=== PATIENT | male | born 1975 | race Caucasian/White ===

== ENCOUNTER 2016-02-17 10:07 | Emergency (ER) | payer BC ==
[2016-02-17] MEDS ORDERED: Zofran 4 MG/2 ML VIAL IV ONE (10:31)
[2016-02-17] MEDS ORDERED: Sodium Chloride 0.9% 1000 ML 1,000 ML IV STA (10:31)
[2016-02-17] MEDS ORDERED: DILAUDID 1 MG/ML INJECTION IV ONE (10:31)
--- NOTE | 2016-02-17 10:35 | ERPHSYRPT ---
- History of Present Illness Time Seen by Provider: 02/17/16 10:25 Source: patient Exam Limitations: clinical condition Physician History: PATIENT WITH HISTORY OF KIDNEY STONES COMPLAINS OF ACUTE ONSET RIGHT FLANK PAINS CONSTANT SINCE LAST NIGHT ASSOCIATED WITH NAUSEA. STATES PAIN IS LOCALIZED BELOW FLANK AREA WITHOUT RADIATION AROUND TO LOWER ABDOMEN. DENIES FEVER, URINARY SYMPTOMS DYSURIA, FREQUENCY, URGENCY OR HEMATURIA. Timing/Duration: yesterday Activites at Onset: none Quality: sharpness, throbbing Onset Location: right flank Pain Radiation: none Severity of Pain-Max: severe Severity of Pain-Current: severe Modifying Factors: Improves With: breathing, movement Associated Symptoms: nausea Prior abdominal problems: similar symptoms Sexual intercourse history: non-contributory Allergies/Adverse Reactions: Penicillins Allergy (Verified 02/17/16 10:27) Home Medications: Metformin HCl 1000 mg [Glucophage 1000 MG] 1,000 mg BID 02/17/16 [History] Sitagliptin Phosphate 50 MG [Januvia 50 MG] 50 mg DAILY 02/17/16 [History] - Review of Systems Constitutional: No Fever, No Chills Eyes: No Symptoms Ears, Nose, & Throat: No Symptoms Respiratory: No Symptoms, No Cough, No Dyspnea Cardiac: No Chest Pain, No Edema, No Syncope Abdominal/Gastrointestinal: No Abdominal Pain, No Nausea, No Vomiting, No Diarrhea Genitourinary Symptoms: No Symptoms, No Dysuria Musculoskeletal: Back Pain, No Neck Pain Skin: No Rash Neurological: No Dizziness, No Focal Weakness, No Sensory Changes Psychological: No Symptoms Endocrine: No Symptoms All Other Systems: Reviewed and Negative - Nursing Vital Signs Nursing Vital Signs: Initial Vital Signs Pulse Rate 75 Respiratory Rate 22 Blood Pressure 129/79 Pain Intensity 4 - Physical Exam General Appearance: no apparent distress, alert Eye Exam: PERRL/EOMI Ears, Nose, Throat Exam: pharynx normal, moist mucous membranes Neck Exam: normal inspection, supple Respiratory Exam: normal breath sounds, lungs clear Cardiovascular Exam: regular rate/rhythm, No edema Gastrointestinal/Abdomen Exam: soft, normal bowel sounds, other (NONTENDER.), No tenderness Back Exam: normal inspection, CVA tenderness, muscle spasm (THERE IS RIGHT PARAVERTEBRAL TENDERNESS T-12 TO L-4) Extremity Exam: normal inspection, normal range of motion, No pedal edema Neurologic Exam: alert, oriented x 3, cooperative, sensation nml, No motor deficits Skin Exam: normal color, warm, dry, No rash SpO2 Interpretation: normal SpO2: 98 - CT Exams Abdomen/Pelvis CT Interpretation: Discussed w/radiologist (NO RENAL CALCULUS, OR EVIDENCE OF OBSTRUCTIVE UROPATHY) Ordered Tests: Active Orders 24 hr Category Date Time Status IV Insertion STAT Care 02/17/16 10:31 Active ABDOMEN AND PELVIS W/0 CONTRAS [CT] Stat Exams 02/17/16 10:32 Completed AMYLASE Stat Lab 02/17/16 10:43 Completed BMP Stat Lab 02/17/16 10:43 Completed CBC W DIFF Stat Lab 02/17/16 10:43 Completed D-DIMER QUANTITATION Stat Lab 02/17/16 10:30 Completed LIPASE Stat Lab 02/17/16 10:43 Completed UA Stat Lab 02/17/16 10:43 Completed Medication Summary Discontinued Medications Generic Name Dose Route Start Last Admin Trade Name Freq PRN Reason Stop Dose Admin Hydromorphone HCl 2 mg 02/17/16 10:31 02/17/16 10:42 Dilaudid 1 Mg/Ml Injection IV 02/17/16 10:32 2 mg STAT ONE Administration Hydromorphone HCl Confirm 02/17/16 10:41 Dilaudid 1 Mg/Ml Injection Administered 02/17/16 10:42 Dose 1 mg .ROUTE .STK-MED ONE Hydromorphone HCl Confirm 02/17/16 10:48 Dilaudid 1 Mg/Ml Injection Administered 02/17/16 10:49 Dose 1 mg .ROUTE .STK-MED ONE Sodium Chloride 1,000 mls @ 999 mls/hr 02/17/16 10:31 02/17/16 10:42 Sodium Chloride 0.9% 1000 Ml IV 02/17/16 11:31 999 mls/hr .Q1H1M STA Administration Sodium Chloride Confirm 02/17/16 10:41 Sodium Chloride 0.9% 1000 Ml Administered 02/17/16 10:42 Dose 1,000 mls @ ud .ROUTE .STK-MED ONE Sodium Chloride Confirm 02/17/16 11:57 Sodium Chloride 0.9% 100 Ml Ivpb Administered 02/17/16 11:58 Dose 100 mls @ ud IV .STK-MED ONE Morphine Sulfate 10 mg 02/17/16 11:50 02/17/16 11:57 Morphine Sulfate 10 Mg/Ml IV 02/17/16 11:51 10 mg STAT ONE Administration Morphine Sulfate Confirm 02/17/16 11:57 Morphine Sulfate 10 Mg/Ml Administered 02/17/16 11:58 Dose 10 mg .ROUTE .STK-MED ONE Ondansetron HCl 4 mg 02/17/16 10:31 02/17/16 10:42 Zofran 4 Mg/2 Ml Vial IV 02/17/16 10:32 4 mg STAT ONE Administration Ondansetron HCl Confirm 02/17/16 10:41 Zofran 4 Mg/2 Ml Vial Administered 02/17/16 10:42 Dose 4 mg .ROUTE .STK-MED ONE Promethazine HCl 25 mg 02/17/16 11:50 02/17/16 11:57 Phenergan 25 Mg Inj IV 02/17/16 11:51 25 mg STAT ONE Administration Promethazine HCl Confirm 02/17/16 11:56 Phenergan 25 Mg Inj Administered 02/17/16 11:57 Dose 25 mg .ROUTE .STK-MED ONE Lab/Rad Data: Laboratory Result Diagrams 02/17/16 10:43 02/17/16 10:43 Laboratory Results 02/17/16 02/17/16 02/17/16 Range/Units 10:43 10:43 10:43 WBC 9.5 (4.0-10.5) K/mm3 RBC 5.16 (4.1-5.6) M/mm3 Hgb 14.9 (12.5-18.0) gm/dl Hct 44.9 (42-50) % MCV 87.0 (78-100) fl MCH 28.9 (26-32) pg MCHC 33.2 (32-36) g/dl RDW 13.6 (11.5-14.0) % Plt Count 281 (150-450) K/mm3 MPV 8.9 (6-9.5) fl Gran % 64.2 (36.0-66.0) % Lymphocytes % 26.7 (24.0-44.0) % Monocytes % 6.7 (0.0-12.0) % Eosinophils % 2.0 (0.00-5.0) % Basophils % 0.4 (0.0-0.4) % Basophils # 0.04 (0-0.4) D-Dimer (0.00-0.49) mg/L Sodium 141 (136-145) mEq/L Potassium 4.4 (3.5-5.1) mEq/L Chloride 105 (98-107) mEq/L Carbon Dioxide 24.2 (21-32) mEq/L Anion Gap 15.7 H (5-15) MEQ/L BUN 18 (9-20) mg/dL Creatinine 1.48 H (0.55-1.30) mg/dl Estimated GFR 55 ML/MIN Glucose 143 H (70-110) MG/DL Calcium 9.6 (8.5-10.1) mg/dL Amylase 66 (25-115) U/L Lipase 255 (73-393) U/L Ur Collection Type VOID Urine Color YELLOW (YELLOW) Urine Appearance CLEAR (CLEAR) Urine pH 5.0 (5-6) Ur Specific [place] >=1.030 (1.005-1.025) Urine Protein NEGATIVE (Negative) Urine Glucose (UA) NEGATIVE (NEGATIVE) mg/dL Urine Ketones NEGATIVE (NEGATIVE) Urine Nitrite NEGATIVE (NEGATIVE) Urine Bilirubin NEGATIVE (NEGATIVE) Urine Urobilinogen 0.2 (0-1) mg/dL Urine WBC (Auto) NEGATIVE (NEGATIVE) Urine RBC (Auto) NEGATIVE (0-5) Tom/ul Specimen Received 02/17/16 1040 02/17/16 Range/Units 10:30 WBC (4.0-10.5) K/mm3 RBC (4.1-5.6) M/mm3 Hgb (12.5-18.0) gm/dl Hct (42-50) % MCV (78-100) fl MCH (26-32) pg MCHC (32-36) g/dl RDW (11.5-14.0) % Plt Count (150-450) K/mm3 MPV (6-9.5) fl Gran % (36.0-66.0) % Lymphocytes % (24.0-44.0) % Monocytes % (0.0-12.0) % Eosinophils % (0.00-5.0) % Basophils % (0.0-0.4) % Basophils # (0-0.4) D-Dimer 0.303 (0.00-0.49) mg/L Sodium (136-145) mEq/L Potassium (3.5-5.1) mEq/L Chloride (98-107) mEq/L Carbon Dioxide (21-32) mEq/L Anion Gap (5-15) MEQ/L BUN (9-20) mg/dL Creatinine (0.55-1.30) mg/dl Estimated GFR ML/MIN Glucose (70-110) MG/DL Calcium (8.5-10.1) mg/dL Amylase (25-115) U/L Lipase (73-393) U/L Ur Collection Type Urine Color (YELLOW) Urine Appearance (CLEAR) Urine pH (5-6) Ur Specific [place] (1.005-1.025) Urine Protein (Negative) Urine Glucose (UA) (NEGATIVE) mg/dL Urine Ketones (NEGATIVE) Urine Nitrite (NEGATIVE) Urine Bilirubin (NEGATIVE) Urine Urobilinogen (0-1) mg/dL Urine WBC (Auto) (NEGATIVE) Urine RBC (Auto) (0-5) Tom/ul Specimen Received - Progress Progress: pain not gone completely Progress Note: 02/17/16 13:13 PATIENT GIVEN 1 LITER NORMAL SALINE, ZOFRAN 4MG, DILAUDID 2MG, WITH MODERATE IMPROVEMENT. MORPHINE SULFATE 10MG IV Counseled pt/family regarding: lab results, diagnosis, need for follow-up, rad results - Departure Time of Disposition: 13:30 Departure Disposition: Home Clinical Impression: RIGHT RENAL COLIC Condition: Stable Critical Care Time: No Additional Instructions: CONSULT YOUR FAMILY PHYSICIAN FOR EVALUATION, CALL OFFICE TODAY TO SCHEDULE APPOINTMENT. PERCOCET 10/325 EVERY 4 HOURS FOR PAIN. NORFLEX 100MG TWICE DAILY FOR 5 DAYS. AVOID USING MOTOR EQUIPMENT WHILE TAKING THESE MEDICATIONS. STRAIN YOUR URINE USING A STRAINER Prescriptions: Oxycodone HCl/Acetaminophen [Percocet 10-325 mg Tablet] 1 each PO Q4HPRN PRN # 10 tablet PRN Reason: Pain Orphenadrine Citrate 100 mg [Norflex 100 MG Tablet] 100 mg PO BIDPRN PRN # 10 tab PRN Reason: Muscle Spasms
[2016-02-17] MEDS ORDERED: Zofran 4 MG/2 ML VIAL ONE (10:41)
[2016-02-17] MEDS ORDERED: Sodium Chloride 0.9% 1000 ML 1,000 ML ONE (10:41)
[2016-02-17] MEDS ORDERED: DILAUDID 1 MG/ML INJECTION ONE ×2 (10:41→10:48)
[2016-02-17 10:49] LABS: BASOPHIL % 0.4 % (0.0-0.4); Granulocytes % 64.2 % (36.0-66.0); Lymphocytes % 26.7 % (24.0-44.0); Mean Corpuscular Hemoglobin 28.9 pg (26-32); Mean Platelet Volume 8.9 fl (6-9.5); Monocytes % 6.7 % (0.0-12.0); Platelet Count 281 K/mm3 (150-450); Red Blood Count 5.16 M/mm3 (4.1-5.6); Red Cell Distribution Width 13.6 % (11.5-14.0); White Blood Count 9.5 K/mm3 (4.0-10.5)
[2016-02-17 10:54] LABS: Collection Type VOID
[2016-02-17 10:55] LABS: COMPLETE URINE MICROSCOPIC? NO
[2016-02-17 11:09] LABS: ANION GAP 15.7 MEQ/L (5-15); Carbon Dioxide 24.2 mEq/L (21-32); Potassium 4.4 mEq/L (3.5-5.1)
[2016-02-17] MEDS ORDERED: MORPHINE SULFATE 10 MG/ML IV ONE (11:50)
[2016-02-17] MEDS ORDERED: Phenergan 25 MG INJ IV ONE (11:50)
[2016-02-17] MEDS ORDERED: Phenergan 25 MG INJ ONE (11:56)
[2016-02-17] MEDS ORDERED: Sodium Chloride 0.9% 100 ML IVPB 100 ML IV ONE (11:57)
[2016-02-17] MEDS ORDERED: MORPHINE SULFATE 10 MG/ML ONE (11:57)
--- NOTE | 2016-02-17 12:10 | XRAY ---
Indication: Right flank pain. Multiple contiguous axial images obtained through the abdomen and pelvis without contrast as ordered. Comparison: February 12, 2010 Lung bases are clear. Heart is not enlarged. No renal calculus or evidence for obstructive uropathy in either system. Stable fatty liver, benign splenic hypodense lesion, cholecystectomy, and hepatic/splenic calcified granulomas. Noncontrasted stomach and bowel loops nonobstructed with again minimal descending/sigmoid diverticulosis. Normal appendix. No free fluid/air. Remaining liver, pancreas, spleen, adrenal glands, kidneys, ureters, bladder, and aorta appear unremarkable for noncontrast exam. Osseous structures intact. Impression: 1. No new/acute intra-abdominal/pelvic abnormalities on this noncontrast exam. 2. Stable fatty liver, benign splenic hypodense lesion, colonic diverticulosis, and evidence for old granulomatous disease. CT DI is 21.14
[2016-02-17 13:35] VITALS: BP 123/74; PULSE 78; O2SAT 70
== END 2016-02-17 13:35 | disposition home or self-care (01) ==
LOC: ED 10:07
DX: N23 Unspecified renal colic (principal); R10.9 Unspecified abdominal pain; R11.0 Nausea
CPT/HCPCS: 36000; 36415; 74176; 80048; 81002; 82150; 83690; 85025; 85379; 96360; 96365; 96374; 96375; 99283; J1170; J2270; J2405; J2550

== ENCOUNTER 2018-03-15 22:28 | Emergency (ER) | payer BC ==
--- NOTE | 2018-03-15 22:41 | ERPHSYRPT ---
- History of Present Illness Time Seen by Provider: 03/15/18 22:41 Source: patient, family Exam Limitations: no limitations Physician History: 42 y/o diabetic white male presents with left side neck pain which radiates to left post shoulder and left mormon around eye. no visual changes. had had several episodes of this in the past improved with nsaids. this episode did not improve with alleve pm he took at 9pm. no cp, no soa and no abd pain. Timing/Duration: today Severity: moderate Modifying Factors: Improves With: movement Associated Symptoms: nausea, No vomiting, No abdominal pain, No shortness of breath, No chest pain, No headaches, No syncope, No seizure Allergies/Adverse Reactions: Penicillins Allergy (Verified 03/15/18 22:34) Home Medications: Metformin HCl 1000 mg [Glucophage 1000 MG] 1,000 mg BID 02/17/16 [History] Sitagliptin Phosphate 50 MG [Januvia 50 MG] 50 mg DAILY 02/17/16 [History] Hx Influenza Vaccination/Date Given: No Hx Pneumococcal Vaccination/Date Given: No - Review of Systems Constitutional: No Symptoms Eyes: No Symptoms Ears, Nose, & Throat: No Symptoms Respiratory: No Symptoms Cardiac: No Symptoms Abdominal/Gastrointestinal: Nausea, No Abdominal Pain, No Vomiting, No Diarrhea Genitourinary Symptoms: No Symptoms, No Dysuria, No Frequency, No Hematuria Musculoskeletal: Neck Pain (left side primarily a little on right) Skin: No Symptoms Neurological: No Symptoms Psychological: No Symptoms Endocrine: No Symptoms Hematologic/Lymphatic: No Symptoms Immunological/Allergic: No Symptoms All Other Systems: Reviewed and Negative - Past Medical History Pertinent Past Medical History: Yes Neurological History: No Pertinent History ENT History: No Pertinent History Cardiac History: No Pertinent History Respiratory History: No Pertinent History Endocrine Medical History: Diabetes Type II Musculoskeletal History: No Pertinent History GI Medical History: No Pertinent History History: Renal Disease Other Medical History: stage 3 reanal disease - Past Surgical History Past Surgical History: No Neuro Surgical History: No Pertinent History Cardiac: No Pertinent History Respiratory: No Pertinent History Gastrointestinal: No Pertinent History Genitourinary: No Pertinent History - Social History Smoking Status: Never smoker Exposure to second hand smoke: No Drug Use: none Patient Lives Alone: No - Nursing Vital Signs Nursing Vital Signs: Initial Vital Signs Temperature 98.0 F 03/15/18 22:36 Pulse Rate 95 H 03/15/18 22:36 Respiratory Rate 18 03/15/18 22:36 Blood Pressure 151/103 03/15/18 22:36 O2 Sat by Pulse Oximetry 98 03/15/18 22:36 Pain Scale Pain Intensity 4 - Physical Exam General Appearance: mild distress, alert, anxiety Eye Exam: PERRL/EOMI, eyes nml inspection, No photophobia Ears, Nose, Throat Exam: normal ENT inspection, moist mucous membranes Neck Exam: normal inspection, supple, full range of motion, other (muscular tenderness to palpation left paraspinous region.) Respiratory Exam: normal breath sounds, lungs clear, airway intact, No chest tenderness, No respiratory distress, No accessory muscle use, No rhonchi, No wheezing, No stridor Cardiovascular Exam: regular rate/rhythm, normal heart sounds, normal peripheral pulses Gastrointestinal/Abdomen Exam: soft, normal bowel sounds, No tenderness, No guarding Rectal Exam: not done Back Exam: normal inspection, normal range of motion, No CVA tenderness, No vertebral tenderness Extremity Exam: normal inspection, normal range of motion, pelvis stable Neurologic Exam: alert, oriented x 3, cooperative, 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 Skin Exam: normal color, warm, dry Lymphatic Exam: No adenopathy SpO2 Interpretation: normal O2 Delivery: Room Air - Course Nursing assessment & vital signs reviewed: Yes Ordered Tests: Active Orders 24 hr Category Date Time Status NECK WO CONTRAST [CT] Stat Exams 03/15/18 22:50 Taken Medication Summary Discontinued Medications Generic Name Dose Route Start Last Admin Trade Name Sherrie PRN Reason Stop Dose Admin Hydromorphone HCl 1 mg 03/15/18 22:49 03/15/18 22:57 Hydromorphone 1 Mg/Ml Ampule IM 03/15/18 22:50 1 mg STAT ONE Administration Hydromorphone HCl Confirm 03/15/18 22:53 Hydromorphone 1 Mg/Ml Ampule Administered 03/15/18 22:54 Dose 1 mg .ROUTE .STK-MED ONE Ondansetron HCl 4 mg 03/15/18 22:50 03/15/18 22:55 Zofran Odt 4 Mg PO 03/15/18 22:51 4 mg STAT ONE Administration Ondansetron HCl Confirm 03/15/18 22:53 Zofran Odt 4 Mg Administered 03/15/18 22:54 Dose 4 mg .ROUTE .STK-MED ONE Orphenadrine Citrate 60 mg 03/15/18 22:50 03/15/18 22:56 Norflex 60 Mg/2 Ml IM 03/15/18 22:51 60 mg STAT ONE Administration Orphenadrine Citrate Confirm 03/15/18 22:54 Norflex 60 Mg/2 Ml Administered 03/15/18 22:55 Dose 60 mg .ROUTE .STK-MED ONE - Progress Progress: improved, re-examined Progress Note: 03/16/18 00:53 ct c spine-no acute findings Counseled pt/family regarding: diagnosis, need for follow-up, rad results - Departure Time of Disposition: 00:54 Departure Disposition: Home Clinical Impression: Neck pain on left side, Muscle spasms of neck Condition: Stable Critical Care Time: No Referrals: MERARI RODRIGUEZ [Primary Care Provider] - Additional Instructions: add tylenol for pain. no ibuprofen or alleve until prednisone completed. monitor blood sugar closely while taking prednisone Prescriptions: Carisoprodol 350 mg [Soma 350 mg] 350 mg PO Q8H PRN PRN #10 tablet PRN Reason: Muscle Spasms Prednisone 10 mg [Deltasone 10 mg] 10 mg PO TID #6 tablet
[2018-03-15] MEDS ORDERED: Hydromorphone 1 mg/ml Ampule IM ONE (22:49)
[2018-03-15] MEDS ORDERED: Norflex 60 MG/2 ML IM ONE (22:50)
[2018-03-15] MEDS ORDERED: ZOFRAN ODT 4 MG PO ONE (22:50)
[2018-03-15] MEDS ORDERED: Hydromorphone 1 mg/ml Ampule ONE (22:53)
[2018-03-15] MEDS ORDERED: ZOFRAN ODT 4 MG ONE (22:53)
[2018-03-15] MEDS ORDERED: Norflex 60 MG/2 ML ONE (22:54)
[2018-03-16 00:35] VITALS: BP 141/83
[2018-03-16 01:02] VITALS: PULSE 86; O2SAT 99
--- NOTE | 2018-03-16 09:12 | XRAY ---
Indication: Left neck pain radiating left shoulder. Multiple contiguous axial images obtained through the neck without contrast as ordered. Comparison: None Multiple bilateral dental amalgams produces beam artifact limiting these levels. Parotid and submandibular glands are bilaterally symmetric. Major arteries and veins are normal in course and caliber. Small nonpathologic cervical lymph nodes bilaterally. No pathologic cervical or supraclavicular lymphadenopathy. Supra-and infraglottic airway widely patent. Normal epiglottis. Cervical spine intact with mild C5-C6 degenerative disc osteophyte complex without spinal canal or foraminal stenosis. Base of the brain and lung apices unremarkable. Impression: 1. C5-C6 degenerative disc disease better evaluated with outpatient MRI if clinically warranted. 2. Remaining CT neck without contrast exam is negative. Comment: Preliminary interpretation was made by [facility] who does not report incidental C5-C6 degenerative changes. CT DI 12.52
== END 2018-03-16 01:14 | disposition home or self-care (01) ==
LOC: ED 22:28
DX: M54.2 Cervicalgia (principal); E11.9 Type 2 diabetes mellitus without complications; Z79.4 Long term (current) use of insulin; N18.3 Chronic kidney disease, stage 3 (moderate)
CPT/HCPCS: 70490; 96372; 99284; J1170; J2360; Q0162

== ENCOUNTER 2020-06-25 18:37 | Emergency (ER) | payer BC ==
[2020-06-25 18:39] VITALS: O2SAT 95
[2020-06-25] MEDS ORDERED: MORPHINE SULFATE 4 MG INJ IM ONE (19:00)
[2020-06-25] MEDS ORDERED: MORPHINE SULFATE 4 MG INJ ONE (19:16)
[2020-06-25 19:47] VITALS: BP 140/92; PULSE 100
--- NOTE | 2020-06-25 20:00 | ERPHSYRPT ---
- History of Present Illness Time Seen by Provider: 06/25/20 18:56 Historian: patient Exam Limitations: no limitations Patient Subjective Stated Complaint: Pt was moving barrels of oil this morning when he felt a "pop" in his left ribs that has continued to get worse all day Triage Nursing Assessment: Pt drove self to the ER, hypertensive, hx of left sided rib fractures, pain with breathing, no visible bruising, denies any other injuries, lungs clear Physician History: 45 years old male with history of diabetes mellitus, previous left-sided rib fracture presented in the ER with chief complaint of left posterior lateral chest wall pain sudden onset this morning while he was moving all barrels and heard a popping sound with sudden severe sharp pain around the area of popping. Hurts to take it deep breath, position change/coughing/palpation. Because of pain he is having shallow breathing and feels a little short of breath but not hypoxic on presentation in the ER. Patient denies any abdominal pain, nausea or vomiting. Timing/Duration: today, constant, sudden, worse Activities at Onset: activity Quality: sharpness, stabbing Location: other (Left posterior lateral chest wall) Chest Pain Radiation: no radiation Severity of Pain-Max: severe Severity of Pain-Current: severe Modifying Factors: Improves With: rest. Worsens With: breathing, coughing, movement, palpation, change in position Associated Symptoms: shortness of breath, hurts to breathe, No cough Prior Chest Pain/Cardiac Workup: non-cardiac Nitro Today/Relief: no nitro taken today Aspirin Treatment Today: no aspirin today Allergies/Adverse Reactions: Penicillins Allergy (Verified 06/25/20 18:46) Home Medications: Metformin HCl 1000 mg [Glucophage 1000 MG] 1,000 mg BID 02/17/16 [History] Glimepiride 2 mg [Amaryl 2 MG] 2 mg PO DAILY 06/25/20 [History] Sertraline HCl [Zoloft] 100 mg PO DAILY 06/25/20 [History] Simvastatin 10 mg [Zocor 10MG] 10 mg PO DAILY 06/25/20 [History] Hx Influenza Vaccination/Date Given: No Hx Pneumococcal Vaccination/Date Given: No Travel Risk - International Travel Have you traveled outside of the country in past 3 weeks: No - Coronavirus Screening Are you exhibiting any of the following symptoms?: No Close contact with a COVID-19 positive Pt in past 14-21 Days: No - Vaccine Status Have you recieved a Covid-19 vaccination: Yes [facility] Coordinator: Moderna - Vaccination Dates Date of 2cond Vaccination (if applicable): 06/14/2020 - Review of Systems Constitutional: No Symptoms Eyes: No Symptoms Ears, Nose, & Throat: No Symptoms Respiratory: Dyspnea Cardiac: Chest Pain Abdominal/Gastrointestinal: No Symptoms Genitourinary Symptoms: No Symptoms Skin: No Symptoms Neurological: No Symptoms Psychological: No Symptoms Endocrine: No Symptoms Hematologic/Lymphatic: No Symptoms Immunological/Allergic: No Symptoms - Past Medical History Pertinent Past Medical History: Yes Neurological History: No Pertinent History ENT History: No Pertinent History Cardiac History: No Pertinent History Respiratory History: No Pertinent History Endocrine Medical History: Diabetes Type II Musculoskeletal History: No Pertinent History GI Medical History: No Pertinent History History: Renal Disease Other Medical History: stage 3 reanal disease - Past Surgical History Past Surgical History: Yes Neuro Surgical History: No Pertinent History Cardiac: No Pertinent History Respiratory: No Pertinent History Gastrointestinal: Cholecystectomy Genitourinary: No Pertinent History Musculoskeletal: Orthopedic Surgery Other Surgical History: wrist surgery - Social History Smoking Status: Never smoker Exposure to second hand smoke: No Drug Use: none Patient Lives Alone: No - Nursing Vital Signs Nursing Vital Signs: Initial Vital Signs Pulse Rate 102 H 06/25/20 18:38 Respiratory Rate 31 H 06/25/20 18:38 Blood Pressure 150/100 06/25/20 18:38 O2 Sat by Pulse Oximetry 95 06/25/20 18:38 Pain Scale Pain Intensity 4 - Physical Exam General Appearance: no apparent distress, alert Eye Exam: PERRL/EOMI Ears, Nose, Throat Exam: normal ENT inspection, pharynx normal Neck Exam: normal inspection, non-tender, supple, full range of motion Respiratory Exam: chest tenderness (Left lower posterolateral chest wall. No crepitus. 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 Skin Exam: normal color SpO2 Interpretation: normal SpO2: 95 O2 Delivery: Room Air Ordered Tests: Active Orders 24 hr Category Date Time Status CHEST 1 VIEW (PORTABLE) Stat Exams 06/25/20 19:03 Taken RIBS UNILATERAL Stat Exams 06/25/20 19:03 Taken Medication Summary Discontinued Medications Generic Name Dose Route Start Last Admin Trade Name Freq PRN Reason Stop Dose Admin Morphine Sulfate 4 mg 06/25/20 19:00 06/25/20 19:20 Morphine Sulfate 4 Mg Inj IM 06/25/20 19:01 4 mg STAT ONE Administration Morphine Sulfate Confirm 06/25/20 19:16 Morphine Sulfate 4 Mg Inj Administered 06/25/20 19:17 Dose 4 mg .ROUTE .STK-MED ONE - Progress Progress: improved, re-examined Air Movement: good Progress Note: 06/25/20 19:56 Patient has point tenderness in the left chest. No crepitus. Given morphine for symptomatic relief and feeling better on reevaluation. I have obtained x- rays which showed minimally displaced left ninth rib fracture without pneumo or hemothorax. No other acute findings in the chest x-ray. No abdominal pain. Recommended pain medications and outpatient follow-up with primary care for reevaluation. Discussed use of incentive spirometer/deep breathing exercises to avoid atelectasis. Blood Culture(s) Obtained: No Antibiotics given: No Counseled pt/family regarding: diagnosis, need for follow-up, rad results - Departure Departure Disposition: Home Clinical Impression: Left rib fracture Qualifiers: Encounter type: initial encounter Rib fracture type: single rib Fracture type: closed Qualified Code(s): S22.32XA - Fracture of one rib, left side, initial encounter for closed fracture Condition: Stable Critical Care Time: No Referrals: MERARI RODRIGUEZ [Primary Care Provider] - (Tomorrow for reevaluation) Instructions: Rib Fracture (DC) Additional Instructions: Deep breathing exercises. Take pain medications as needed. Use inhaler as needed. Follow-up with primary care for reevaluation. Return to ER for worsening/intractable pain/difficulty breathing/abdominal pain vomiting etc. Prescriptions: Oxycodone HCl/Acetaminophen [Percocet 7.5-325 mg Tablet] 1 each PO Q6H PRN PRN 3 Days #12 tablet MDD 04 PRN Reason: Pain
--- NOTE | 2020-06-26 08:43 | XRAY ---
Indication: Left rib pain following lifting injury. Comparison: November 17, 2007. Portable chest less inflated with new mild bibasilar subsegmental atelectasis. Remaining heart and lungs unremarkable. Visualized bony thorax intact. Left ribs reported separately.
--- NOTE | 2020-06-26 08:43 | XRAY ---
Indication: Pain following lifting injury. Comparison: None 2 view left ribs demonstrates nondisplaced lateral 9 rib fracture with mild left lung base subsegmental atelectasis. No hemothorax/pneumothorax or other bony, articular, or soft tissue abnormalities.
== END 2020-06-25 20:08 | disposition home or self-care (01) ==
LOC: ED 18:37
DX: S22.32XA Fracture of one rib, left side, initial encounter for closed fracture (principal); X50.0XXA Overexertion from strenuous movement or load, initial encounter; Y93.89 Activity, other specified; Y92.89 Other specified places as the place of occurrence of the external cause
CPT/HCPCS: 71045; 71100; 96372; 99284; J2270

== ENCOUNTER 2021-12-21 21:09 | Emergency (ER) | payer BC ==
[2021-12-21] MEDS ORDERED: Adacel Vial IM ONE ×2 (21:22→21:24)
[2021-12-21 21:23] VITALS: O2SAT 98
[2021-12-21] MEDS ORDERED: TORAdol 30 mg Injection IM ONE (21:40)
[2021-12-21] MEDS ORDERED: TORAdol 30 mg Injection ONE (21:44)
--- NOTE | 2021-12-21 21:50 | ERPHSYRPT ---
- History of Present Illness Source: patient Exam Limitations: no limitations Patient Subjective Stated Complaint: pt is alert and oriented states that he stepped on anail earler today and puklled it out, his foot and toes are numb Triage Nursing Assessment: pt rates pain in left foot 08/17 Physician History: 46 yo WM stepped on a nail at 18:00 tonight stepping off a ladder. Pt denies retained material and states that his pain is moderate to severe. He is not UTD on his Tdap and will be given it in the ER. Pt denies any other injuries at this time. Method of Injury: incised (Stepped on a nail) Occurred: other (18:00 today) Quality: constant Severity of Pain-Max: severe Severity of Pain-Current: moderate Lower Extremities Pain: foot: left (L plantar puncture wound) Modifying Factors: Improves With: movement Associated Symptoms: none Allergies/Adverse Reactions: Penicillins Allergy (Verified 01/22/21 14:28) Home Medications: Metformin HCl 1000 mg [Glucophage 1000 MG] 1,000 mg BID 02/17/16 [History] Metformin HCl [Glucophage] 1,000 mg PO BID 03/25/20 [History] Multivitamin 1 each PO DAILY 03/25/20 [History] Sertraline HCl [Zoloft] 100 mg PO DAILY 03/25/20 [History] glyBURIDE [Glyburide] 1.25 mg PO DAILY 03/25/20 [History] Glimepiride 2 mg [Amaryl 2 MG] 2 mg PO DAILY 06/25/20 [History] Sertraline HCl [Zoloft] 100 mg PO DAILY 06/25/20 [History] Simvastatin 10 mg [Zocor 10MG] 10 mg PO DAILY 06/25/20 [History] Hx Tetanus, Diphtheria Vaccination/Date Given: No Hx Influenza Vaccination/Date Given: No Hx Pneumococcal Vaccination/Date Given: No Travel Risk - International Travel Have you traveled outside of the country in past 3 weeks: No - Coronavirus Screening Are you exhibiting any of the following symptoms?: No Close contact with a COVID-19 positive Pt in past 14-21 Days: No - Vaccine Status Have you recieved a Covid-19 vaccination: No Digital Imager: Moderna - Vaccination Dates Date of 2cond Vaccination (if applicable): unknown - Review of Systems Constitutional: No Symptoms Eyes: No Symptoms Ears, Nose, & Throat: No Symptoms Respiratory: No Symptoms Cardiac: No Symptoms Abdominal/Gastrointestinal: No Symptoms Genitourinary Symptoms: No Symptoms Skin: No Symptoms Neurological: No Symptoms Psychological: No Symptoms Endocrine: No Symptoms Hematologic/Lymphatic: No Symptoms Immunological/Allergic: No Symptoms - Past Medical History Pertinent Past Medical History: Yes Neurological History: No Pertinent History ENT History: No Pertinent History Cardiac History: No Pertinent History Respiratory History: No Pertinent History Endocrine Medical History: Diabetes Type II Musculoskeletal History: No Pertinent History GI Medical History: No Pertinent History History: Renal Disease, Other Psycho-Social History: Depression Male Reproductive Disorders: No Pertinent History Other Medical History: pt states that he has been told in the past he had stage 3 kidney disease, but states he hasnt seen a [employer] internship in several years, doctor told him that his creatinine was high but not concerned. As of last labs everyting was normal. - Past Surgical History Past Surgical History: Yes Neuro Surgical History: No Pertinent History Cardiac: No Pertinent History Respiratory: No Pertinent History Gastrointestinal: Cholecystectomy Genitourinary: No Pertinent History Musculoskeletal: Orthopedic Surgery, Other Male Surgical History: No Pertinent History Other Surgical History: Right wrist surgery - Social History Smoking Status: Never smoker Exposure to second hand smoke: No Drug Use: none Patient Lives Alone: No Significant Family History: no pertinent family hx - Nursing Vital Signs Nursing Vital Signs: Initial Vital Signs Temperature 97.9 F 12/21/21 21:15 Pulse Rate 108 H 12/21/21 21:15 Respiratory Rate 18 12/21/21 21:15 Blood Pressure 141/89 12/21/21 21:15 O2 Sat by Pulse Oximetry 98 12/21/21 21:15 Pain Scale Pain Intensity 7 Hypertensive/tachycardic - Physical Exam General Appearance: no apparent distress Eyes, Ears, Nose, Throat Exam: normal ENT inspection, TMs normal, pharynx normal, moist mucous membranes Neck Exam: normal inspection, non-tender, supple, full range of motion, No Brudzinski, No Kernig's, No meningismus Cardiovascular/Respiratory Exam: normal breath sounds, heart sounds normal, tachycardia Gastrointestinal/Abdominal Exam: non-tender Back Exam: normal inspection, normal range of motion, No CVA tenderness, No vertebral tenderness Hips Exam: bilateral: non-tender, normal inspection, normal range of motion, no evidence of injury Legs Exam: bilateral leg: non-tender, normal inspection, normal range of motion, no evidence of injury Knees Exam: bilateral knee: non-tender, normal inspection, normal range of motion, no evidence of injury Ankle Exam: bilateral ankle: non-tender, normal inspection, normal range of motion, no evidence of injury Foot Exam: left foot: other (Distal plantar puncture wound/Good hemostasis/Good pedal pulse, distal sensation, and capillary return) Neuro/Tendon Exam: normal sensation, normal motor functions, normal tendon functions, responds to pain, no evidence tendon injury, No motor deficit, No sensory deficit Mental Status Exam: alert, oriented x 3, cooperative Skin Exam: normal color, warm, dry SpO2 Interpretation: normal SpO2: 98 O2 Delivery: Room Air - Course Nursing assessment & vital signs reviewed: Yes - Radiology Exams Foot X-ray Interpretation: Interpreted by me (L foot neg for FB/Fx) Ordered Tests: Active Orders 24 hr Category Date Time Status FOOT (MINIMUM 3 VIEWS) Stat Exams 12/21/21 21:52 Taken Medication Summary Discontinued Medications Generic Name Dose Route Start Last Admin Trade Name Sherrie PRN Reason Stop Dose Admin Hydrocodone Bitart/Acetaminophen 2 tab 12/21/21 22:00 12/21/21 22:09 Hydrocodone/Apap 5/325 1 Tab Tablet PO 12/21/21 22:01 2 tab SENT HOME W/ PATIENT ONE Administration Hydrocodone Bitart/Acetaminophen Confirm 12/21/21 22:08 Hydrocodone/Apap 5/325 1 Tab Tablet Administered 12/21/21 22:09 Dose 2 tab .ROUTE .STK-MED ONE Diphtheria/Tetanus/Acell Pertussis 0.5 ml 12/21/21 21:22 12/21/21 21:27 Tdap --Diph,Pertuss(Acell),Tet Vac/Pf 0.5 Ml Vial IM 12/21/21 21:23 0.5 ml .ONCE ONE Administration Diphtheria/Tetanus/Acell Pertussis Confirm 12/21/21 21:24 Tdap --Diph,Pertuss(Acell),Tet Vac/Pf 0.5 Ml Vial Administered 12/21/21 21:25 Dose 0.5 ml IM .STK-MED ONE Ketorolac Tromethamine 30 mg 12/21/21 21:40 12/21/21 21:44 Ketorolac Tromethamine 30 Mg/Ml Inj IM 12/21/21 21:41 30 mg STAT ONE Administration Ketorolac Tromethamine Confirm 12/21/21 21:44 Ketorolac Tromethamine 30 Mg/Ml Inj Administered 12/21/21 21:45 Dose 30 mg .ROUTE .STK-MED ONE - Progress Progress: improved Progress Note: 12/21/21 21:55 Tdap/30mg IM Toradol Counseled pt/family regarding: diagnosis, need for follow-up, rad results - Departure Departure Disposition: Home Clinical Impression: Puncture wound of plantar aspect of foot Condition: Stable Critical Care Time: No Referrals: MERARI RODRIGUEZ [Primary Care Provider] - Follow up/PCP as directed Instructions: Wound Care (DC) Additional Instructions: Wash area twice a day with soap/water Watch for signs of infection-Increasing redness, increasing pain, pus, temperature greater than 100.5 Prescriptions: Ciprofloxacin [Cipro 500 MG] 500 mg PO BID 5 Days #10 tablet
[2021-12-21] MEDS ORDERED: NORCO 5/325 MG PO ONE (22:00)
[2021-12-21] MEDS ORDERED: NORCO 5/325 MG ONE (22:08)
[2021-12-21 22:17] VITALS: BP 124/86; PULSE 56
--- NOTE | 2021-12-22 08:56 | XRAY ---
Indication: Stepped on nail. Comparison: June 01, 2007 3 nonweightbearing views left foot demonstrates tiny talonavicular accessory ossicle and small posterior heel spur. No other bony, articular, or soft tissue abnormalities. Specifically no radiopaque foreign body.
== END 2021-12-21 22:17 | disposition home or self-care (01) ==
LOC: ED 21:09
DX: S91.332A Puncture wound without foreign body, left foot, initial encounter (principal); W22.8XXA Striking against or struck by other objects, initial encounter; W45.0XXA Nail entering through skin, initial encounter; M79.672 Pain in left foot; E11.9 Type 2 diabetes mellitus without complications; Z79.84 Long term (current) use of oral hypoglycemic drugs; Z79.899 Other long term (current) drug therapy
CPT/HCPCS: 73630; 90471; 90715; 96372; 99283; J1885; A9270-GY

== ENCOUNTER 2022-03-01 16:20 | Emergency (ER) | payer BC ==
[2022-03-01] MEDS ORDERED: Sodium Chloride 0.9% 1000 ML 1,000 ML IV STA (16:37)
[2022-03-01] MEDS ORDERED: Sodium Chloride 0.9% 1000 ML 1,000 ML ONE (16:38)
--- NOTE | 2022-03-01 16:47 | ERPHSYRPT ---
- History of Present Illness Time Seen by Provider: 03/01/22 16:45 Source: patient Exam Limitations: no limitations Patient Subjective Stated Complaint: pt here for high blood sugar today, co feeling sluggish, has been out of trulicity and started on ozempic yesterday Triage Nursing Assessment: pt alert, resp easy, skin w/d/p, face mask in place , no edema noted, mucus membranes moist Physician History: pt here for high blood sugar today, co feeling sluggish, has been out of trulicity and started on ozempic yesterday, denies nausea vomiting. Timing/Duration: today Associated Symptoms: denies symptoms Allergies/Adverse Reactions: Penicillins Allergy (Verified 01/22/21 14:28) Home Medications: Metformin HCl 1000 mg [Glucophage 1000 MG] 1,000 mg BID 02/17/16 [History] Multivitamin 1 each PO DAILY 03/25/20 [History] Sertraline HCl [Zoloft] 100 mg PO DAILY 06/25/20 [History] Hx Tetanus, Diphtheria Vaccination/Date Given: No Hx Influenza Vaccination/Date Given: No Hx Pneumococcal Vaccination/Date Given: No Immunizations Up to Date: Yes Travel Risk - International Travel Have you traveled outside of the country in past 3 weeks: No - Coronavirus Screening Are you exhibiting any of the following symptoms?: No - Vaccine Status Have you recieved a Covid-19 vaccination: No Delivery Of Shopping News: Moderna - Vaccination Dates Date of 2cond Vaccination (if applicable): unknown - Review of Systems Constitutional: Lethargy, No Fever, No Chills Eyes: No Symptoms Ears, Nose, & Throat: No Symptoms Respiratory: No Cough, No Dyspnea Cardiac: No Chest Pain, No Edema, No Syncope Abdominal/Gastrointestinal: No Abdominal Pain, No Nausea, No Vomiting, No Diarrhea Genitourinary Symptoms: No Dysuria Musculoskeletal: No Back Pain, No Neck Pain Skin: No Rash Neurological: No Dizziness, No Focal Weakness, No Sensory Changes Psychological: No Symptoms Endocrine: No Symptoms All Other Systems: Reviewed and Negative - Past Medical History Pertinent Past Medical History: Yes Neurological History: No Pertinent History ENT History: No Pertinent History Cardiac History: No Pertinent History Respiratory History: No Pertinent History Endocrine Medical History: Diabetes Type II Musculoskeletal History: No Pertinent History GI Medical History: No Pertinent History History: Renal Disease, Other Psycho-Social History: Depression Male Reproductive Disorders: No Pertinent History Other Medical History: pt states that he has been told in the past he had stage 3 kidney disease, but states 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 As of last labs everyting was normal. - Past Surgical History Past Surgical History: Yes Neuro Surgical History: No Pertinent History Cardiac: No Pertinent History Respiratory: No Pertinent History Gastrointestinal: Cholecystectomy Genitourinary: No Pertinent History Musculoskeletal: Orthopedic Surgery, Other Male Surgical History: No Pertinent History Other Surgical History: Right wrist surgery - Social History Smoking Status: Never smoker Exposure to second hand smoke: No Drug Use: none Patient Lives Alone: No Significant Family History: no pertinent family hx - Nursing Vital Signs Nursing Vital Signs: Initial Vital Signs Temperature 97.2 F 03/01/22 16:25 Pulse Rate 120 H 03/01/22 16:25 Respiratory Rate 18 03/01/22 16:25 Blood Pressure 132/89 03/01/22 16:25 O2 Sat by Pulse Oximetry 98 03/01/22 16:25 Pain Scale Pain Intensity 0 - Physical Exam General Appearance: no apparent distress, alert Eye Exam: PERRL/EOMI, eyes nml inspection Ears, Nose, Throat Exam: normal ENT inspection, TMs normal, pharynx normal, moist mucous membranes Neck Exam: normal inspection, non-tender, supple, full range of motion Respiratory Exam: normal breath sounds, lungs clear, No respiratory distress Cardiovascular Exam: regular rate/rhythm, normal heart sounds, normal peripheral pulses Gastrointestinal/Abdomen Exam: soft, normal bowel sounds, No tenderness, No mass Back Exam: normal inspection, normal range of motion, No CVA tenderness, No vertebral tenderness Extremity Exam: normal inspection, normal range of motion, pelvis stable Neurologic Exam: alert, oriented x 3, cooperative, normal mood/affect, nml cerebellar function, nml station & gait, sensation nml, No motor deficits Skin Exam: normal color, warm, dry, No rash Lymphatic Exam: No adenopathy SpO2: 98 - Course Nursing assessment & vital signs reviewed: Yes Ordered Tests: Active Orders 24 hr Category Date Time Status CBC W DIFF Stat Lab 03/01/22 18:02 Completed CMP Routine Lab 03/01/22 16:45 Received POCT GLUCOSE Stat Lab 03/01/22 16:31 Completed Medication Summary Discontinued Medications Generic Name Dose Route Start Last Admin Trade Name Freq PRN Reason Stop Dose Admin Sodium Chloride 1,000 mls @ 999 mls/hr 03/01/22 16:37 03/01/22 18:06 Sodium Chloride 0.9% 1000 Ml IV 03/01/22 17:37 Infused .Q1H1M STA Infusion Sodium Chloride Confirm 03/01/22 16:38 Sodium Chloride 0.9% 1000 Ml Administered 03/01/22 16:39 Dose 1,000 mls @ ud .ROUTE .K-MED ONE Lab/Rad Data: Laboratory Result Diagrams 03/01/22 18:02 Laboratory Results 03/01/22 03/01/22 03/01/22 Range/Units 18:02 18:02 16:31 WBC 10.2 (4.0-10.5) x10^3/uL RBC 5.08 (4.1-5.6) x10^6/uL Hgb 14.8 (12.5-18.0) g/dL Hct 43.8 (42-50) % MCV 86.2 (78-100) fL MCH 29.1 (26-32) pg MCHC 33.8 (32-36) g/dL RDW 12.6 (11.5-14.0) % Plt Count 306 (150-450) x10^3/uL MPV 10.0 (7.5-11.0) fL Gran % 67.5 H (36.0-66.0) % Immature Gran % (Auto) 0.8 H (0.00-0.4) % Nucleat RBC Rel Count 0.0 (0.00-0.1) % Eos # (Auto) 0.39 (0-0.5) x10^3/uL Immature Gran # (Auto) 0.08 H (0.00-0.03) x10^3u/L Absolute Lymphs (auto) 2.13 (1.0-4.6) x10^3/uL Absolute Monos (auto) 0.65 (0.0-1.3) x10^3/uL Absolute Nucleated RBC 0.00 (0.00-0.01) x10^3u/L Lymphocytes % 20.9 L (24.0-44.0) % Monocytes % 6.4 (0.0-12.0) % Eosinophils % 3.8 (0.00-5.0) % Basophils % 0.6 (0.0-0.4) % Absolute Granulocytes 6.86 (1.4-6.9) x10^3/uL Basophils # 0.06 (0-0.4) x10^3/uL POC Glucometer 328 H (74 to 106) mg/dL Hemoglobin A1c 8.55 H (4.5-6.0) % - Progress Progress: improved Counseled pt/family regarding: lab results, diagnosis, need for follow-up - Departure Departure Disposition: Home Clinical Impression: Type 2 diabetes mellitus Qualifiers: Diabetes mellitus snf insulin use: without medical terminologist use Diabetes mellitus complication status: with hyperglycemia Qualified Code(s): E11.65 - Type 2 diabetes mellitus with hyperglycemia Condition: Stable Critical Care Time: No Critical Care Time(excluding separately billable procedures): Critical 30-74 mins Referrals: MERARI RODRIGUEZ [Primary Care Provider] - Follow up/PCP as directed Instructions: High Blood Sugar, Adult (DC) Additional Instructions: Discharge/Care Plan SHERLEY ALVAREZ was seen on 03/01/22 in the Emergency Room. The patient was counseled regarding Diagnosis,Lab results, Imaging studies, need for follow up and when to return to the Emergency Room. Prescriptions given: Discharge Note I have spoken with the patient and/or caregivers. I have explained the patient's condition, diagnosis and treatment plan based on the information available to me at this time. I have answered the patient's and/or caregiver's questions and addressed any concerns. The patient and/or caregivers have as good understanding of the patient's diagnosis, condition and treatment plan as can be expected at this point. The vital signs have been stable. The patient's condition is stable and appropriate for discharge from the emergency department. The patient will pursue further outpatient evaluation with the primary care physician or other designated or consulting physician as outlined in the discharge instructions. The patient and/or caregivers are agreeable to this plan of care and follow-up instructions have been explained in detail. The patient and/or caregivers have received these instruction. The patient/and or caregivers are aware that any significant change in condition or worsening of symptoms should prompt an immediate return to this or the closest emergency department or call 911. SHERLEY ALVAREZ was seen on 03/01/22 n the Emergency Room. At that time you were treated for an emergent condition, during your visit Laboratory, Radiology and/or other procedures may have been ordered. It is very important that you follow-up with your Primary Care Physician MERARI RODRIGUEZ within the next 24-48 hours to review your Emergency Room visit and the final results of testing that was ordered. Some test results such as Urine Cultures, Blood Cultures, and other cultures if ordered will not be finalized for 24-48 hours. If you do not have a Primary Care Provider please call the medical records department at [phone] to obtain a copy of your results or you may sign into our patient portal to obtain these results by visiting us @ [email or web address] and completing the following steps: 1. Click on the Patient Portal link 2. Click the Patient Self Enrollment Link to complete the enrollment form and entering your 3. Once the enrollment form is completed you will receive an email with a temporary ID and password at the email address you provided. 4. Next choose a user name and password. Your user name must be at least 4 characters long and your password must be at least 4 characters long. 5. Choose a security question from the list and provide your answer to the question. If you already have signed into the Health Portal you may access your Health Care Information 31/08 by the following steps: 1. Login to our website @ [email or web address] 2. Enter your original user name and password. FAQS The [facility] Health Portal is an online tool that contains your Lab Results, Radiology Reports, Visit History, Discharge Instructions and Health Summary Lab and Radiology Results will not be available for 72 hours on the portal. The Portal is a secure site, passwords are encryted and URLs are re-written so they cannot be copied and pasted. You and authorized family members are the only ones who can access your Portal. Also there is a timeout feature that protects your information if you leave the Portal page open. If you have technical difficulty please use the Contact Us link on the page this will allow you to submit any questions you have regarding the Portal or you may contact the Medical Record Department at [phone]. Prescriptions: Empagliflozin [Jardiance] 10 mg PO DAILY #30 tablet
[2022-03-01 18:05] LABS: Absolute Neutrophil Ct (ANC) 6.86 x10^3/uL (1.4-6.9); BASOPHIL % 0.6 % (0.0-0.4); Basophil (Absolute #) 0.06 x10^3/uL (0-0.4); Eosinophil % 3.8 % (0.00-5.0); Eosinophil (Absolute #) 0.39 x10^3/uL (0-0.5); Hematocrit 43.8 % (42-50); Hemoglobin 14.8 g/dL (12.5-18.0); IMMATURE GRAN # 0.08 x10^3u/L (0.00-0.03); IMMATURE GRAN % 0.8 % (0.00-0.4); Lymphocyte (Absolute #) 2.13 x10^3/uL (1.0-4.6); Lymphocytes % 20.9 % (24.0-44.0); Mean Cell Volume 86.2 fL (78-100); Mean Corpuscular Hemoglobin 29.1 pg (26-32); Mean Corpuscular Hgb Concent. 33.8 g/dL (32-36); Monocyte (Absolute #) 0.65 x10^3/uL (0.0-1.3); Monocytes % 6.4 % (0.0-12.0); Neutrophil % 67.5 % (36.0-66.0); Platelet Count 306 x10^3/uL (150-450); Red Blood Count 5.08 x10^6/uL (4.1-5.6); Red Cell Distribution Width 12.6 % (11.5-14.0); White Blood Count 10.2 x10^3/uL (4.0-10.5)
[2022-03-01 18:26] VITALS: O2SAT 98
[2022-03-01 18:29] LABS: ALBUMIN 4.5 g/dL (3.5-5.0); ALKALINE PHOSPHATASE 91 U/L (38-126); ANION GAP 15.6 MEQ/L (5-15); BLOOD UREA NITROGEN 15 mg/dL (9-20); CHLORIDE 98 mmol/L (98-107); Carbon Dioxide 24 mmol/L (22-30); Creatinine 1 1.26 mg/dL (0.66-1.25); EST GLOMERULAR FILTRATION RATE > 60.0 ML/MIN; Glucose 394 mg/dL (74-106); Potassium 4.3 mmol/L (3.5-5.1); SGOT/AST 43 U/L (17-59); SODIUM 133 mmol/L (137-145); Total Protein 7.9 g/dL (6.3-8.2)
[2022-03-01 18:35] LABS: SGPT/ALT 45 U/L (0-50)
[2022-03-01 18:46] VITALS: BP 145/79; PULSE 90
== END 2022-03-01 18:47 | disposition home or self-care (01) ==
LOC: ED 16:20
DX: E11.65 Type 2 diabetes mellitus with hyperglycemia (principal); R53.83 Other fatigue; Z79.84 Long term (current) use of oral hypoglycemic drugs; Z79.85 Long-term (current) use of injectable non-insulin antidiabetic drugs; Z79.899 Other long term (current) drug therapy; Z28.310 Unvaccinated for COVID-19
CPT/HCPCS: 36000; 36415; 80053; 82947; 83036; 85025; 96360; 99284; 99291

== ENCOUNTER 2022-08-13 16:55 | Emergency (ER) | payer BC | END 2022-08-13 17:50 | disposition left against medical advice (07) | LOC: ED 16:55 | DX: Z53.21 Procedure and treatment not carried out due to patient leaving prior to being seen by health care provider (principal) ==

== ENCOUNTER 2023-07-23 06:06 | Day surgery (SDC) | payer BC ==
[2023-07-23] MEDS ORDERED: Lactated Ringers 1,000 ML IV ONE (06:50)
[2023-07-23] MEDS: Lactated Ringers 1,000 ML IV SCH (06:53)
[2023-07-23 06:57] VITALS: RESP 16; TEMP 97.3
[2023-07-23] MEDS ORDERED: DIPRIVAN 200 MG/20 ML IV ONE ×2 (07:21→07:36)
[2023-07-23] MEDS ORDERED: Versed 2 MG/2 ML Injection ONE (07:21)
[2023-07-23 07:33] LABS: ANION GAP 12.6 MEQ/L (5-15); Calcium 9.4 mg/dL (8.4-10.2); Creatinine 1 1.51 mg/dL (0.66-1.25); EST GLOMERULAR FILTRATION RATE 55.9 ML/MIN; Potassium 4.2 mmol/L (3.5-5.1)
[2023-07-23 08:47] VITALS: BP 104/72; PULSE 80; O2SAT 93
--- NOTE | 2023-07-23 08:55 | OP ---
SURGERY DATE/TIME: 07/23/2023 1234 - [id number] PREOPERATIVE DIAGNOSIS: Screening exam. POSTOPERATIVE DIAGNOSIS: Sigmoid colon polyp. PROCEDURE: Colonoscopy with cold forceps biopsy. SURGEON: Dr. Alistair Gallardo. ANESTHESIA: Medications given by anesthesia department. HISTORY: The patient is a 48-year-old white male patient presenting now for his first screening colonoscopy. He was appraised of the risks of the procedure including the risk of perforation, phlebitis, untoward reaction to medication, bleeding and missed lesions. The patient verbalized his understanding and desired to have the procedure performed. DESCRIPTION OF PROCEDURE: The patient was given the medications by the anesthesia department. He had continuous pulse oximetry, ECG monitoring and intermittent blood pressure monitoring during the examination. He was placed in the left lateral decubitus position. Digital rectal examination was performed and revealed normal anal sphincter tone, no masses and a normal prostate. The flexible Olympus colonoscope was used to intubate the rectum. A view of the colon was developed sequentially to the cecum. Upon insertion and withdrawal was noted approximately 1 cm polyp in the sigmoid colon this is destroyed using multiple passes of the cold forceps biopsy instrument. No other mucosal lesions being encountered, the scope was removed. The patient who tolerated the procedure well and was sent back to OP recovery in good condition. The prep was noted to be fair to good.
== END 2023-07-23 08:45 | disposition home or self-care (01) ==
LOC: SDC 06:06
PROVIDERS: ATTEND Family Medicine
DX: Z12.11 Encounter for screening for malignant neoplasm of colon (principal); E11.9 Type 2 diabetes mellitus without complications; D12.5 Benign neoplasm of sigmoid colon
CPT/HCPCS: 36415; 80048; 82947; 93005; J2250; J2704